=== PATIENT | female | born 1980 | race Caucasian/White ===

== ENCOUNTER → 2019-02-05 15:23 | Outpatient (CLI) | payer OTHER, SELFPAY | PROVIDERS: Family Provider Family Medicine; PCP Family Medicine; Visit Provider Nurse Practitioner | DX: N89.8 Other specified noninflammatory disorders of vagina (principal); N94.9 Unspecified condition associated with female genital organs and menstrual cycle | CPT/HCPCS: 87070; 87205 ==

== ENCOUNTER → 2019-05-16 10:47 | Outpatient (CLI) | payer OTHER, SELFPAY ==
[2019-05-16 11:31] LABS: Add Manual Diff / Slide Review NO; Basophils Absolute Auto 0 /uL (0-100); Basophils Percent Auto 0.8 % (0-2); Eosinophils Absolute Auto 200 /uL (0-450); Eosinophils Percent Auto 3.9 % (2-4); Hematocrit 40.4 % (36-46); Lymphocytes Absolute Auto 1700 /uL (1100-4500); Lymphocytes Percent Auto 36.2 % (25-40); Mean Corpuscular HGB Conc 34.7 % (30-36); Mean Corpuscular Hemoglobin 32.6 PG (26-34); Mean Corpuscular Volume 93.9 fL (80-100); Monocytes Absolute Auto 400 /uL (0-900); Monocytes Percent Auto 8.3 % (3-14); Neutrophils Absolute Auto 2400 /uL (1500-7000); Neutrophils Percent Auto 50.8 % (50-75); Platelet Count 248 X10^3/uL (150-400); Red Cell Distribution Width 13.3 % (11.6-14.8); White Blood Cell Count 4.6 X10^3/uL (4.5-11.0)
[2019-05-16 11:56] LABS: HEMOLYSIS < 15 (0-50); Potassium 4.1 mmol/L (3.4-5.1)
[2019-05-16 11:57] LABS: Alanine Aminotransferase 22 IU/L (9-52); Albumin 4.6 g/dL (3.5-5.0); Albumin Globulin Ratio 1.6 (1.0-2.8); Alkaline Phosphatase 45 U/L (38-126); Aspartate Aminotransferase 24 IU/L (14-36); BUN Creatinine Ratio 17.1 (6-22); Bilirubin Total 0.9 mg/dL (0.2-1.3); Blood Urea Nitrogen 12 mg/dL (7-17); Calcium 10.9 mg/dL (8.4-10.2); Carbon Dioxide 26 mmol/L (22-32); Chloride 102 mmol/L (98-107); Estimated Glomerular Filt Rate > 60.0 mL/min (>60); Globulin 2.8 g/dL (1.7-4.1); Glucose 106 mg/dL (70-100); Sodium 139 mmol/L (137-145); Total Protein 7.4 g/dL (6.3-8.2)
[2019-05-16 12:24] LABS: TSH w/ Reflex to FT4 2.33 uIU/mL (0.47-4.68)
== END ==
PROVIDERS: Family Provider Family Medicine; PCP Family Medicine; Visit Provider Nurse Practitioner
DX: Z00.00 Encounter for general adult medical examination without abnormal findings (principal)
CPT/HCPCS: 36415; 80053; 84443; 85025

== ENCOUNTER → 2019-05-30 09:27 | Outpatient (CLI) | payer OTHER, SELFPAY ==
[2019-05-30 11:07] LABS: Hemoglobin A1C% w Est Avg Glu 4.9 % (4.0-6.0)
[2019-05-30 11:54] LABS: Calcium 10.8 mg/dL (8.4-10.2); Glucose 79 mg/dL (70-100)
== END ==
PROVIDERS: PCP Family Medicine; Visit Provider Nurse Practitioner
DX: R73.9 Hyperglycemia, unspecified (principal); E83.52 Hypercalcemia
CPT/HCPCS: 36415; 82310; 82947; 83036

== ENCOUNTER → 2019-05-31 10:45 | Outpatient (CLI) | payer OTHER, SELFPAY ==
[2019-05-31 12:59] LABS: Phosphorous 2.9 mg/dL (2.5-4.5)
[2019-06-04 15:15] LABS: Calcium 8.4 mg/dL (8.6-10.2); Parathyroid Hormone, Intact 7 pg/mL (14-64)
[2019-06-04 15:26] LABS: Ionized Calcium 5.7 mg/dL (4.8-5.6)
== END ==
PROVIDERS: PCP Family Medicine; Visit Provider Nurse Practitioner
DX: E83.52 Hypercalcemia (principal); F32.9 Major depressive disorder, single episode, unspecified; L65.9 Nonscarring hair loss, unspecified; R53.83 Other fatigue
CPT/HCPCS: 36415; 82330; 83970; 84100

== ENCOUNTER → 2019-06-03 09:32 | Outpatient (CLI) | payer OTHER, SELFPAY ==
[2019-06-03 16:20] LABS: Calcium 24 Hour Urine 36 mg/day (100-300); Calcium Urine Random 1.5; Collection Time Urine 24 Hours; Total Volume Urine 2400 mL
== END ==
PROVIDERS: Family Provider Family Medicine; PCP Family Medicine; Visit Provider Nurse Practitioner
DX: E83.52 Hypercalcemia (principal); F32.9 Major depressive disorder, single episode, unspecified; L65.9 Nonscarring hair loss, unspecified; R53.83 Other fatigue
CPT/HCPCS: 82340

== ENCOUNTER → 2019-06-06 09:29 | Outpatient (CLI) | payer OTHER, SELFPAY ==
[2019-06-06 11:13] LABS: Prolactin 11.2 ng/mL (3.0-18.6)
[2019-06-06 11:18] LABS: Follicle Stimulating Hormone 6.12 mIU/mL
[2019-06-06 11:20] LABS: Free T3, Triiodothyronine Free 3.52 pg/mL (2.77-5.27); Free T4, Direct Thyroxine 0.86 ng/dL (0.78-2.19)
[2019-06-06 11:33] LABS: Thyroid Stimulating Hormone 3.21 uIU/mL (0.47-4.68)
[2019-06-08 13:47] LABS: Adrenocorticotropic Hormone 12 pg/mL (6-50)
== END ==
PROVIDERS: PCP Family Medicine; Visit Provider Nurse Practitioner
DX: E83.52 Hypercalcemia (principal); L65.9 Nonscarring hair loss, unspecified; R79.89 Other specified abnormal findings of blood chemistry
CPT/HCPCS: 36415; 82024; 83001; 84146; 84439; 84443; 84481

== ENCOUNTER → 2019-06-14 06:47 | Outpatient (CLI) | payer OTHER, SELFPAY ==
--- NOTE | 2019-06-14 06:50 | DI.MRI.S_ITS ---
PROCEDURE: MR BRAIN (PITUITARY) WWO CON INDICATIONS: elevated serum calcium/ low PTH, hair loss TECHNIQUE: Noncontrast sagittal and axial FLAIR, axial gradient echo, axial diffusion and ADC through the brain. Thin-slice sagittal and coronal T1 spin echo, coronal T2 fast spin echo through the pituitary. After the administration contrast, optional dynamic coronal T1 spin echo, thin-slice coronal and sagittal T1 spin echo images through the pituitary fossa; axial T1 spin echo with fat saturation through the brain. COMPARISON: None. FINDINGS: Image quality: Excellent. Pituitary Gland: Pituitary gland is normal size and contour. No sellar or suprasellar masses identified. 2 material and demonstrates normal, homogeneous postcontrast enhancement with no areas of relative delayed postcontrast enhancement. Pituitary infundibulum is slightly deviated to the right. Pituitary infundibulum has normal thickness and postcontrast enhancement. The optic chiasm is normal. Cavernous sinus which is normal postcontrast enhancement. CSF Spaces: Ventricles are normal in size and shape. Basal cisterns are patent. No extra-axial fluid collections. Brain: No intracranial bleeds or mass effects. No abnormal intracranial enhancement. Mcghee-white matter interface is intact. Diffusion weighted images demonstrate no acute ischemic insults. Brainstem is normal. Normal intravascular flow voids are present. Skull and face: Calvarial marrow is normal in signal. Orbits appear normal. Sinuses: Sinuses and mastoids are clear. IMPRESSION: 1. No intracranial disease process. 2. No MR evidence of pituitary microadenoma. Dictated by: Kassidy Mcknight MD, PhD on 06/14/2019 at 9:58 Approved by: Kassidy Mcknight MD, PhD on 06/14/2019 at 10:09
[2019-06-14 09:30] LABS: Magnesium 2.3 mg/dL (1.6-2.3)
[2019-06-14 10:44] LABS: Vitamin D 25 Hydroxy (D3) 34.2 ng/mL (30.0-100.0)
[2019-06-18 23:13] LABS: Vitamin A 59 mcg/dL (38-98)
[2019-06-19 06:39] LABS: 1 25 Dihydroxy Vitamin D 28 pg/mL (18-72)
== END ==
PROVIDERS: PCP Family Medicine; Visit Provider Nurse Practitioner
DX: E83.52 Hypercalcemia (principal); L65.9 Nonscarring hair loss, unspecified; R79.89 Other specified abnormal findings of blood chemistry
CPT/HCPCS: 36415; 70553; 82306; 82652; 83735; 84590; A9579

== ENCOUNTER → 2019-07-24 09:24 | Outpatient (CLI) | payer OTHER, SELFPAY ==
[2019-07-24 10:38] LABS: Lactate Dehydrogenase 362 U/L (313-618)
[2019-07-26 20:12] LABS: Albumin 4.5 g/dL (3.8-4.8); Alpha 1 Globulin 0.2 g/dL (0.2-0.3); Alpha 2 Globulin 0.6 g/dL (0.5-0.9); Beta 1 Globulin 0.5 g/dL (0.4-0.6); Protein, Total 7.1 g/dL (6.1-8.1)
[2019-07-27 13:36] LABS: Albumin 100 %; Total Urine Protein < 4 mg/dL (5-24); Urine Creatinine, Random 26 mg/dL (20-275)
== END ==
PROVIDERS: PCP Family Medicine; Visit Provider Family Medicine
DX: E83.52 Hypercalcemia (principal)
CPT/HCPCS: 36415; 83615; 84155; 84156; 84165; 84166

== ENCOUNTER → 2020-08-11 10:10 | Outpatient (CLI) | payer OTHER, SELFPAY ==
[2020-08-11 12:53] LABS: Add Manual Diff / Slide Review NO; Basophils Absolute Auto 0 /uL (0-100); Basophils Percent Auto 0.7 % (0-2); Eosinophils Absolute Auto 200 /uL (0-450); Eosinophils Percent Auto 2.7 % (2-4); Hematocrit 38.6 % (36-46); Hemoglobin 13.2 g/dL (12.0-16.0); Lymphocytes Absolute Auto 1900 /uL (1100-4500); Lymphocytes Percent Auto 31.9 % (25-40); Mean Corpuscular HGB Conc 34.3 % (30-36); Mean Corpuscular Hemoglobin 31.7 PG (26-34); Mean Corpuscular Volume 92.6 fL (80-100); Monocytes Absolute Auto 500 /uL (0-900); Monocytes Percent Auto 7.9 % (3-14); Neutrophils Absolute Auto 3400 /uL (1500-7000); Neutrophils Percent Auto 56.8 % (50-75); Platelet Count 269 X10^3/uL (150-400); Red Blood Cell Count 4.17 X10^6/uL (4.0-5.2); Red Cell Distribution Width 13.4 % (11.6-14.8)
[2020-08-11 13:10] LABS: Appearance Urine UA CLEAR; Bilirubin Urine UA NEGATIVE (NEGATIVE); Color Urine UA YELLOW; Glucose Urine UA NEGATIVE (Negative); Ketones Urine UA NEGATIVE (NEGATIVE); Leukocyte Esterase Urine UA 1+ (NEGATIVE); Nitrite Urine UA NEGATIVE (Negative); Occult Blood Urine UA NEGATIVE (Negative); Protein Urine UA NEGATIVE (Negative); Urobilinogen Urine UA 0.2 E.U./dL (0.2)
[2020-08-11 13:15] LABS: pH Urine UA 6.5 (4.5-8.0)
[2020-08-11 13:16] LABS: Bacteria Urine None Seen; RBC Urine None Seen (0-5/HPF)
[2020-08-11 13:27] LABS: Culture Indicated Urine Cult Not Indicated; Squamous Epithelial Cell Urine 5-10 /HPF (0-5/HPF); WBC Urine 1-5/HPF (0-5/HPF)
[2020-08-11 13:34] LABS: Alanine Aminotransferase 17 IU/L (<35); Albumin 4.3 g/dL (3.5-5.0); Albumin Globulin Ratio 1.6 (1.0-2.8); Alkaline Phosphatase 40 U/L (38-126); Aspartate Aminotransferase 27 IU/L (14-36); BUN Creatinine Ratio 21.2 (6-22); Bilirubin Total 0.4 mg/dL (0.2-1.3); Blood Urea Nitrogen 11 mg/dL (7-17); Calcium 10.7 mg/dL (8.4-10.2); Carbon Dioxide 26 mmol/L (22-32); Chloride 105 mmol/L (98-107); Estimated Glomerular Filt Rate > 60.0 mL/min (>60); Globulin 2.7 g/dL (1.7-4.1); Glucose 78 mg/dL (70-100); HEMOLYSIS < 15 (0-50); Potassium 4.1 mmol/L (3.4-5.1); Sodium 136 mmol/L (137-145)
[2020-08-12 10:03] LABS: RPR Screen Non Reactive (Non Reactive); Varicella IgG Antibody 1327 index (Immune >165)
[2020-08-13 16:40] LABS: Hepatitis B Surface Antigen NEGATIVE s/c (NEGATIVE); Rubella Antibody IgG 11.8 IU/mL (>15)
[2020-08-13 16:58] LABS: HIV 1 & 2 Ab/Ag 4th Gen Combo NEGATIVE (NEGATIVE); Hep C Virus Ab w/Reflex Quant NEGATIVE s/c (NEGATIVE)
== END ==
PROVIDERS: PCP Family Medicine; Referring Provider Obstetrics & Gynecology; Visit Provider Obstetrics & Gynecology
DX: Z34.81 Encounter for supervision of other normal pregnancy, first trimester (principal); E83.52 Hypercalcemia
CPT/HCPCS: 36415; 80053; 80055; 81003; 81015; 81420; 86787; 86803; 86850; 86900; 86901; 87389

== ENCOUNTER → 2020-08-25 18:46 | Outpatient (ROUT) | payer OTHER, SELFPAY ==
[2020-08-25 20:27] LABS: Urine N gonorrhoeae NOT DETECTED
[2020-08-25 20:37] LABS: Urine Chlamydia NOT DETECTED
== END ==
PROVIDERS: PCP Family Medicine; Visit Provider Obstetrics & Gynecology
DX: Z34.81 Encounter for supervision of other normal pregnancy, first trimester (principal); Z3A.12 12 weeks gestation of pregnancy
CPT/HCPCS: 87491; 87591

== ENCOUNTER → 2020-09-22 14:37 | Outpatient (CLI) | payer OTHER, SELFPAY ==
[2020-09-24 19:40] LABS: AFP Value 40.9 ng/mL (.); Gestational Age Ultrasound (.); Insulin Dep Diabetes No (.); OSBR Risk 1IN 6916 (.); Results Report (.); Test Results *Screen Negative* (.)
== END ==
PROVIDERS: PCP Family Medicine; Referring Provider Family Medicine; Visit Provider Obstetrics & Gynecology
DX: O09.522 Supervision of elderly multigravida, second trimester (principal)
CPT/HCPCS: 36415; 82105

== ENCOUNTER → 2020-10-20 12:45 | Outpatient (CLI) | payer OTHER, SELFPAY ==
--- NOTE | 2020-10-20 12:46 | DI.US.S_ITS ---
PROCEDURE: US OB >= 14 WEEKS FETUS INDICATIONS: ANATOMY OUTSIDE/PRIOR DATING DATA: Last menstrual period (LMP): 06/02/2020. LMP-based estimated date of delivery (DANIELITO): 03/09/2021 . First dating scan (date and location): 10/20/2020 . Estimated date of delivery (DANIELITO) from first dating scan: 03/11/2021 . TECHNIQUE: Real-time scanning was performed of the fetus, with image documentation and biometric measurements. Endovaginal scanning: No COMPARISON: [facility], , OB <= 14 WEEKS FETUS, 08/25/2020, 14:07. FINDINGS: General: A single living intrauterine gestation is present. Presentation: Vertex. Placenta: Placental position is posterior , and low-lying with the inferior margin of the placenta roughly 1.8 cm above the internal cervical os. Amniotic fluid index: 9.7 cm, normal range is 5-24 cm. heart rate: 128 beats per minute. Maternal cervical canal: 6.1 cm long. Normal lower limit is 2.5 cm. biometrics: Biparietal diameter: 19 weeks Head circumference: 19 weeks Abdominal circumference: 20 weeks 4 days Femur length: 19 weeks 6 days Estimated gestational age from initial scan: 19 weeks 5 days Composite gestational age from present scan: 19 weeks 4 days Estimated weight and percentile: 330 g; 66 percentile Measurement variability for biometric dating: +/- 7 days from 14 weeks to 15 weeks 6 days gestation, +/- 10 days from 16 weeks to 21 weeks 6 days gestation, +/- 2 weeks from 22 weeks to 27 weeks 6 days gestation, +/- 3 weeks for 28 weeks gestation or later. weight reference: 4500 g or EFW >90/95% is considered macrosomia or large for gestational age. EFW <10% is small for gestational age. EFW 5% or less is considered intra-uterine growth restriction. Anatomic survey: Neuro: Ventricles are non-dilated at less than 10 mm. Cisterna magna is normal at 3-11 mm. Cerebellum is normal in size and morphology. Nuchal skin fold: Normal at less than 6 mm between 14-21 weeks gestational age. Face: Nose and lips, facial profile are normal. Spine: No evidence for spina bifida. Heart: 4-chambered heart is present, with normal ventricular outflow tracts. Diaphragm: Diaphragm is intact. Stomach: Left-sided stomach is present. Kidneys: No hydronephrosis. Normal is less than 5 mm in 2nd trimester, less than 7 mm in 3rd trimester. Cord: 3-vessel cord has orthotopic insertion. Bladder: Normal in size. Extremities: All 4 extremities identified. IMPRESSION: 1. Single living IUP redemonstrated and interval growth is normal. 2. Normal anatomic survey. 3. Low-lying placenta. Follow-up recommended. Dictated by: Carlyle SEALS Interpreted: Polly Gallardo MD on 10/20/2020 at 16:44 Approved by: Polly Gallardo M.D. on 10/20/2020 at 17:06
== END ==
PROVIDERS: PCP Family Medicine; Referring Provider Obstetrics & Gynecology; Visit Provider Obstetrics & Gynecology
DX: Z34.82 Encounter for supervision of other normal pregnancy, second trimester (principal); Z3A.19 19 weeks gestation of pregnancy
CPT/HCPCS: 76811

== ENCOUNTER → 2020-12-04 12:24 | Outpatient (CLI) | payer OTHER, SELFPAY ==
[2020-12-04 13:50] LABS: Hemoglobin 10.7 g/dL (12.0-16.0)
[2020-12-04 13:59] LABS: GTT (PREG) 1 Hour PP 50gm Dose 173 mg/dL (76-139)
== END ==
PROVIDERS: PCP Family Medicine; Referring Provider Obstetrics & Gynecology; Visit Provider Obstetrics & Gynecology
DX: Z34.82 Encounter for supervision of other normal pregnancy, second trimester (principal); Z3A.26 26 weeks gestation of pregnancy
CPT/HCPCS: 36415; 82950; 85014; 85018

== ENCOUNTER → 2020-12-11 08:00 | Outpatient (CLI) | payer OTHER, SELFPAY ==
[2020-12-11 08:44] LABS: Glucose Fasting Gestational 88 mg/dL (76-95)
[2020-12-11 10:07] LABS: Glucose 1 Hour Gest 167 mg/dL (76-180)
[2020-12-11 11:17] LABS: Glucose 2 Hour Gest 113 mg/dL (76-155)
[2020-12-11 11:18] LABS: Glucose Tol Interp,Gestational INTERPRETATION
[2020-12-11 13:04] LABS: Glucose 3 Hour Gest 136 mg/dL (76-140)
== END ==
PROVIDERS: PCP Family Medicine; Referring Provider Obstetrics & Gynecology; Visit Provider Obstetrics & Gynecology
DX: O99.810 Abnormal glucose complicating pregnancy (principal)
CPT/HCPCS: 36415; 82951; 82952

== ENCOUNTER 2021-02-09 17:24 | Outpatient (CLI) | payer OTHER, SELFPAY | END 2021-02-09 18:00 | disposition home or self-care (01) | LOC: OB 02-10 08:42 | PROVIDERS: PCP Family Medicine; Referring Provider Obstetrics & Gynecology; Visit Provider Obstetrics & Gynecology | DX: O36.8330 Maternal care for abnormalities of the fetal heart rate or rhythm, third trimester, not applicable or unspecified (principal); O09.523 Supervision of elderly multigravida, third trimester; Z3A.36 36 weeks gestation of pregnancy | CPT/HCPCS: 59025; 87653; G0378; G0379 ==

== ENCOUNTER → 2021-02-09 17:37 | Outpatient (CLI) | payer SELFPAY ==
[2021-02-10 13:30] LABS: Strep Grp B PCR NEG for Grp B Strep
== END ==
PROVIDERS: PCP Family Medicine; Visit Provider Obstetrics & Gynecology
DX: Z34.83 Encounter for supervision of other normal pregnancy, third trimester (principal); Z3A.36 36 weeks gestation of pregnancy
CPT/HCPCS: 87653

== ENCOUNTER 2021-02-19 18:28 | Outpatient (CLI) | payer OTHER, SELFPAY ==
[2021-02-19 18:58] LABS: Add Manual Diff / Slide Review NO; Basophils Absolute Auto 0 /uL (0-100); Basophils Percent Auto 0.6 % (0-2); Eosinophils Absolute Auto 100 /uL (0-450); Eosinophils Percent Auto 2.1 % (2-4); Hematocrit 29.6 % (36-46); Hemoglobin 9.7 g/dL (12.0-16.0); Lymphocytes Absolute Auto 1900 /uL (1100-4500); Lymphocytes Percent Auto 28.1 % (25-40); Mean Corpuscular HGB Conc 32.7 % (30-36); Mean Corpuscular Hemoglobin 27.3 PG (26-34); Mean Corpuscular Volume 83.4 fL (80-100); Monocytes Absolute Auto 600 /uL (0-900); Monocytes Percent Auto 9.4 % (3-14); Neutrophils Absolute Auto 4100 /uL (1500-7000); Neutrophils Percent Auto 59.8 % (50-75); Platelet Count 243 X10^3/uL (150-400); Red Blood Cell Count 3.54 X10^6/uL (4.0-5.2); Red Cell Distribution Width 16.4 % (11.6-14.8); White Blood Cell Count 6.9 X10^3/uL (4.5-11.0)
[2021-02-19 19:11] LABS: Aspartate Aminotransferase 29 IU/L (14-36); BUN Creatinine Ratio 8.7 (6-22); Blood Urea Nitrogen 4 mg/dL (7-17); Estimated Glomerular Filt Rate > 60.0 mL/min (>60)
--- NOTE | 2021-02-19 20:20 | PM.OBTRLD ---
Visit Information Visit Information Date of evaluation: 02/21/21 Primary OB Provider: Miriam Rossi On-call OB Provider: Yessy Browning Reason for Evaluation: Yes other Comments/Additional reasons for admission: This patient is a 40-year-old para 3 at 37 weeks gestation presenting for evaluation for preeclampsia. Patient has had an uncomplicated except for advanced maternal age, has not been hypertensive, but reports that she was waiting in line at a local pharmacy with a blood pressure cuff and she took her blood pressure with a cuff and it was noted to be 146/90. Patient denies headaches, visual changes, right upper quadrant pain, chest pain. Good movement, no contractions, no loss of fluid, no vaginal bleeding. Vital Signs Vital Signs: 113-119/72-73, heart rate 70s PFSH Medical History Anxiety (~2018) Bursitis of hip, right Constipation Depression Diastasis of symphysis pubis during delivery (~2011) Hamstring strain Muscle strain of gluteal region Retained placenta with hemorrhage (~2007) Surgical History H/O bilateral inguinal hernia repair (~1985) [place] teeth extracted (~2000) Family History Mother Hypertension Cancer Father Myocardial infarction Medical non-compliance Grandmother Stroke Diabetes mellitus Grandfather Alcohol abuse Grandmother Medical history unknown Grandfather Medical history unknown Sister Rheumatoid arthritis Social History marital status: number of children: 3 household members: spouse and children (7 yr old, 12 yo, 14 yo.) lives independently: Yes caregiver/support person: No housing: house pets and animals: Yes (3 dogs - safe with babies.) education level: college (2 years. 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 ) eating out: rarely or never Type(s) of exercise: regular exercise (Cardio/weightlifting Body Pump class. Core class. ) and running (2-4 miles, 2-3 x a week. Non- she usually runs up to 5-8miles (20-25 miles a week).) frequency: 5-6 times per week Review of Systems Constitutional Constitutional: Reports system reviewed and no additional complaints, except as documented Cardiovascular Cardiovascular: Reports system reviewed and no additional complaints, except as documented Respiratory Respiratory: Reports system reviewed and no additional complaints, except as documented Neurologic Neurologic: Reports system reviewed and no additional complaints, except as documented Exam Narrative Exam Narrative: Patient well-appearing, no hands or feet swelling, resting in bed. Objective Labs Result Diagrams: 02/19/21 18:50 02/19/21 18:50 Labs: Laboratory Results - last 24 hr 02/19/21 02/19/21 18:50 18:50 WBC 6.9 RBC 3.54 L Hgb 9.7 L Hct 29.6 L MCV 83.4 MCH 27.3 MCHC 32.7 RDW 16.4 H Plt Count 243 Neut % (Auto) 59.8 Lymph % (Auto) 28.1 [place] % (Auto) 9.4 Eos % (Auto) 2.1 Baso % (Auto) 0.6 Neut # (Auto) 4100 Lymph # (Auto) 1900 [place] # (Auto) 600 Eos # (Auto) 100 Baso # (Auto) 0 BUN 4 L Creatinine 0.46 L Estimated GFR > 60.0 BUN/Creatinine Ratio 8.7 Uric Acid 5.0 AST 29 Evaluation Evaluation Baseline heart rate: 120 Variability: Moderate (11-25) monitor accelerations: Present Monitor Decelerations: Absent Contraction Frequency (minutes): 0 Category of Tracing: Reactive Status: Category l Laboratory results: Laboratory Tests 02/19/21 02/19/21 18:50 18:50 WBC 6.9 RBC 3.54 L Hgb 9.7 L Hct 29.6 L MCV 83.4 MCH 27.3 MCHC 32.7 RDW 16.4 H Plt Count 243 Neut % (Auto) 59.8 Lymph % (Auto) 28.1 [place] % (Auto) 9.4 Eos % (Auto) 2.1 Baso % (Auto) 0.6 Neut # (Auto) 4100 Lymph # (Auto) 1900 [place] # (Auto) 600 Eos # (Auto) 100 Baso # (Auto) 0 BUN 4 L Creatinine 0.46 L Estimated GFR > 60.0 BUN/Creatinine Ratio 8.7 Uric Acid 5.0 AST 29 Diagnosis, Plan/Disposition Plan/Disposition Plan: Home with labor and PIH precautions. OB Disposition: home
== END 2021-02-19 18:45 | disposition home or self-care (01) ==
LOC: OB 02-22 08:04
PROVIDERS: PCP Family Medicine; Referring Provider Obstetrics & Gynecology; Visit Provider Obstetrics & Gynecology
DX: O26.893 Other specified pregnancy related conditions, third trimester (principal); R03.0 Elevated blood-pressure reading, without diagnosis of hypertension; O09.523 Supervision of elderly multigravida, third trimester; Z3A.37 37 weeks gestation of pregnancy
CPT/HCPCS: 36415; 59025; 84450; 84550; 85025; G0378; G0379

== ENCOUNTER 2021-03-01 18:24 | Inpatient (IN) | payer OTHER, SELFPAY ==
[2021-03-01 19:26] VITALS: BP 119/69
[2021-03-01] MEDS: DINOPROSTONE VAG (CERVIDIL) 10 MG VAG (19:41)
[2021-03-01 20:02] LABS: Add Manual Diff / Slide Review NO; Basophils Absolute Auto 100 /uL (0-100); Basophils Percent Auto 0.8 % (0-2); Eosinophils Absolute Auto 200 /uL (0-450); Eosinophils Percent Auto 2.3 % (2-4); Hematocrit 28.5 % (36-46); Hemoglobin 9.2 g/dL (12.0-16.0); Lymphocytes Absolute Auto 2100 /uL (1100-4500); Lymphocytes Percent Auto 31.8 % (25-40); Mean Corpuscular HGB Conc 32.4 % (30-36); Mean Corpuscular Hemoglobin 26.8 PG (26-34); Mean Corpuscular Volume 82.7 fL (80-100); Monocytes Absolute Auto 600 /uL (0-900); Neutrophils Absolute Auto 3600 /uL (1500-7000); Neutrophils Percent Auto 55.1 % (50-75); Platelet Count 216 X10^3/uL (150-400); Red Blood Cell Count 3.45 X10^6/uL (4.0-5.2); Red Cell Distribution Width 17.3 % (11.6-14.8); White Blood Cell Count 6.5 X10^3/uL (4.5-11.0)
[2021-03-01 21:18] LABS: COVID19 - ADMIT (NP swab/PCR) Negative (Negative)
--- NOTE | 2021-03-02 | PATH_ITS ---
[facility] Accession Number: [id number] . 01 Material submitted: . fallopian tube - BILATERAL FALLOPIAN TUBES . 01 Clinical history: . INDUCTION . 02 Diagnosis: Bilateral Fallopian Tubes, Bilateral Salpingectomy: Complete cross-sections of fallopian tubes x2. Negative for atypia or malignancy. MRV 03/09/2021 0955 Local . 02 Electronically signed: . Santa Toney MD, Pathologist NPI- [id number] . 01 Gross description: . The specimen is received in formalin and labeled with bilateral fallopian tubes. It consists of two undesignated, fimbriated, continuous fallopian tubes. The first tube measures 9.1 cm in length x 0.7 cm in diameter. The first tube is covered in purple-machado to scott-machado, diffusely congested serosa. Sectioning the first tube reveals unremarkable white-machado mucosa, a pinpoint lumen, and alvarez that average 0.2 cm in thickness. . The second tube measures 7.8 cm in length x 0.6 cm in diameter and is covered with purple-machado to scott-machado, diffusely congested serosa. A 0.5 cm in diameter clear fluid filled cyst is present at the fimbriated end. Sectioning the second tube reveals unremarkable white-machado mucosa, a pinpoint lumen, and alvarez that average 0.2 cm in thickness. Skein Yarn Dyer Helper sections are submitted. . Summary of sections: A1 = First tube fimbria, bisected, two pieces A2 = First tube, product support sales representative, four pieces. A3 = Second tube, fimbria bisected, and cyst, three pieces. A4 = Second tube, product support sales representative, four pieces. ([id number]) /[facility] 03/04/2021 1836 Local . 02 Pathologist provided ICD-10: Z40.03 . 02 CPT . 707400 Performed at: 01 [facility] [address] [id number] [place] Rich Luong MD Phone: [phone] Performed at: 02 [facility] [address] [place], [place] [id number] MD Anju Stewart MD Phone: [phone]
--- NOTE | 2021-03-02 08:13 | PM.OBHP.1 ---
OB HPI Date/Time Date of admission: 03/01/21 Time Patient Seen: 08:14 History of Present Condition Chief complaint: Induction : 4 Para: 3 Estimated Date of Delivery: 03/09/21 Estimated Gestational Age (weeks): 39 Narrative: Lupe Sharif is a 40 year old female 4 para 3 at an estimated gestational age of 39 weeks gestation for induction of labor due to advanced maternal age. She received 1 dose of Cervidil overnight. Indications Indication for induction OB: other (Advanced maternal age) History of Present care: good care, initiated at week # (8), number of visits (12) and pounds weight gain (26) Dating criteria: LMP confirmed by 1st trimester US Ultrasounds: normal 1st trimester US and normal mid trimester US Obstetrical complications: none Medical complications: none Preadmission Labs Blood type: O (+) positive -: Antibody screen: negative, GBS status: negative, HBsAG: negative, HIV: negative and RPR/VDLR: negative -: Chlamydia screen: not detected and Gonorrhea screen: not detected -: Rubella: not immune and Varicella: immune HCT: 28.5 HCAB: negative Cell-free DNA: Normal female, normal AFP Urine: Negative 1 hr GTT: 173 3 hr GTT: 1 hr (167), 2 hr (113) and 3 hr (136) Fasting blood glucose: 88 Prior (ies) History: 3 Evaluation Evaluation Baseline heart rate: 115 Variability: Moderate (11-25) monitor accelerations: Present Monitor Decelerations: Absent Contraction Frequency (minutes): 7 Uterine Contraction Intensity: Mild Status: Category l Cervical dilation (cm): 1 Cervical effacement (%): 80 station: -1 Laboratory results: Laboratory Tests 03/01/21 03/01/21 03/01/21 19:55 19:55 20:00 WBC 6.5 RBC 3.45 L Hgb 9.2 L Hct 28.5 L MCV 82.7 MCH 26.8 MCHC 32.4 RDW 17.3 H Plt Count 216 Neut % (Auto) 55.1 Lymph % (Auto) 31.8 [place] % (Auto) 10.0 Eos % (Auto) 2.3 Baso % (Auto) 0.8 Neut # (Auto) 3600 Lymph # (Auto) 2100 [place] # (Auto) 600 Eos # (Auto) 200 Baso # (Auto) 100 SARS-CoV-2 (PCR) Negative Blood Type O Positive Antibody Screen Negative PFSH Medical History Anxiety (~2018) Bursitis of hip, right Constipation Depression Diastasis of symphysis pubis during delivery (~2011) Hamstring strain Muscle strain of gluteal region Retained placenta with hemorrhage (~2007) Surgical History H/O bilateral inguinal hernia repair (~1985) [place] teeth extracted (~2000) Family History Mother Hypertension Cancer Father Myocardial infarction Medical non-compliance Grandmother Stroke Diabetes mellitus Grandfather Alcohol abuse Grandmother Medical history unknown Grandfather Medical history unknown Sister Rheumatoid arthritis Social History marital status: number of children: 3 household members: spouse and children (7 yr old, 12 yo, 14 yo.) lives independently: Yes caregiver/support person: No housing: house pets and animals: Yes (3 dogs - safe with babies.) education level: college (2 years. 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 ) eating out: rarely or never Type(s) of exercise: regular exercise (Cardio/weightlifting Body Pump class. Core class. ) and running (2-4 miles, 2-3 x a week. Non- she usually runs up to 5-8miles (20-25 miles a week).) frequency: 5-6 times per week Meds Home Medications and Allergies Home Medications Medication Instructions Recorded Confirmed Type metoclopramide HCl 10 mg tablet 10 mg PO TID #90 tab 07/23/20 03/02/21 Rx (Reglan) prenat.vits,keri,ozz-wtbw-endvp 1 tab PO DAILY 07/23/20 03/02/21 History pantoprazole 40 mg tablet,delayed 40 mg PO DAILY #30 tab 10/20/20 03/02/21 Rx release (Protonix) Allergies Allergy/AdvReac Type Severity Reaction Status Date / Time latex Allergy Intermediate Throat Verified 02/23/21 13:58 swelling. zolpidem Allergy Mild HALLUCINATE Verified 02/23/21 13:58 Exam Vital Signs (past 8 hours): Generally: Patient sitting up in bed, no acute distress Lungs: Clear to auscultation bilaterally Cardiovascular: Regular rate and rhythm Fundal height: 39 cm Estimated weight: 7-1/2 lb Extremities: Trace edema, 1+ DTR Objective Labs Result Diagrams: 03/01/21 19:55 Labs: Laboratory Results - last 24 hr 03/01/21 03/01/21 03/01/21 19:55 19:55 20:00 WBC 6.5 RBC 3.45 L Hgb 9.2 L Hct 28.5 L MCV 82.7 MCH 26.8 MCHC 32.4 RDW 17.3 H Plt Count 216 Neut % (Auto) 55.1 Lymph % (Auto) 31.8 [place] % (Auto) 10.0 Eos % (Auto) 2.3 Baso % (Auto) 0.8 Neut # (Auto) 3600 Lymph # (Auto) 2100 [place] # (Auto) 600 Eos # (Auto) 200 Baso # (Auto) 100 SARS-CoV-2 (PCR) Negative Blood Type O Positive Antibody Screen Negative Assessment and Plan Assessment and Plan Assessment and Plan narrative: Assessment: 40-year-old 4 para 3 at estimated gestational age of 39 weeks gestation for induction of labor due to advanced maternal age Status post Cervidil overnight Favorable cervix Plan: Pitocin per protocol 2 Artificial rupture of membranes when able Expected management to spontaneous vaginal delivery Time Spent with Patient Total time spent with greater than 50% in coordination of care (as documented) at patient's floor/unit and/or counseling patient:: 15-24 minutes
[2021-03-02] MEDS: LACTATED RINGERS 1,000 ML 100 ML IV (08:52)
[2021-03-02] MEDS: OXYTOCIN PREMIX 30 UNIT/500 ML PLAST..BAG IV (08:53)
--- NOTE | 2021-03-02 12:52 | PM.OBPNLAB ---
Date/Time Date Patient Seen: 03/02/21 Time Patient Seen: 11:15 Pain Control Pain control: tolerating well Pelvic Exam Dilation (cm): 1 Effacement (%): 80 station: -1 Contractions Contractions on admission: none Monitor mode: External Pitocin rate (mU/min): 9 Contraction frequency (min): 4 Contraction duration (min): 1 Contraction pattern: Regular Contraction intensity: Moderate Status status: Category l Heart Rate Baseline: 110 Monitor Accelerations: Present Monitor Decelerations: Absent Monitor Variability: Moderate Assessment and Plan Assessment: induction ongoing Plan: continuous present management
--- NOTE | 2021-03-02 19:14 | PM.OBPNLAB ---
Date/Time Date Patient Seen: 03/02/21 Time Patient Seen: 19:14 Pain Control Pain control: epidural Pelvic Exam Dilation (cm): 4 Effacement (%): 80 station: -1 Amniotic membrane status: Ruptured Contractions Contractions on admission: regular Monitor mode: External Pitocin rate (mU/min): 18 Contraction frequency (min): 3 Contraction duration (min): 1 Contraction pattern: Regular Contraction intensity: Moderate Status status: Category l Heart Rate Baseline: 105 Monitor Accelerations: Present Monitor Decelerations: Absent Monitor Variability: Moderate Assessment and Plan Assessment: induction ongoing Comments: Intrauterine pressure catheter placed. Recheck cervix in 2 hours
[2021-03-02] MEDS: FENT 2MCG/ML BUPIV 0.125% EPI 200 MCG/100 ML PLAST..BAG 12 MCG EPIDURAL (19:58)
--- NOTE | 2021-03-02 22:03 | SUR.OPER ---
Supine on Padded OR bed, head on pillow, safety belt at thigh, arms secured on padded arm boards at <90 degrees abduction. Bump under right buttock. Legs uncrossed with pillow under knees, gel pad to heels, tape over blanket to lower legs.
--- NOTE | 2021-03-02 22:09 | SUR.OPER ---
viable female delivered at 21:56. Cord blood vials x2 and placenta sent with L&D RN.
[2021-03-02] MEDS: CEFAZOLIN 1 GM VIAL 2 GM IV (22:14)
--- NOTE | 2021-03-02 22:39 | PM.OBPNLAB ---
Date/Time Date Patient Seen: 03/02/21 Time Patient Seen: 21:00 Pain Control Pain control: epidural Pelvic Exam Dilation (cm): 4 Effacement (%): 80 station: -2 Amniotic membrane status: Ruptured Contractions Monitor mode: External Pitocin rate (mU/min): 18 Contraction frequency (min): 3 Contraction duration (min): 1 Contraction pattern: Regular Contraction intensity: Strong/Firm Intrauterine tone measurement: 200 Status status: Category ll Heart Rate Baseline: 105 Monitor Accelerations: Present Monitor Decelerations: Recurrent and Variable Monitor Variability: Moderate Assessment and Plan Assessment: other ( intolerance of labor, no descent of the head) Plan:
[2021-03-02 22:40] VITALS: BP 109/57; PULSE 70; RESP 14; TEMP 36.4; O2SAT 98
--- NOTE | 2021-03-02 22:41 | PM.PREOP ---
Pre-operative Note COVID-19 COVID-19 status: Negative Result date/Date tested (Pos, Neg/Pending): 03/01/21 Interval Note History & Physical reviewed/Exam performed by Physician: Yes Changes to H&P: No H&P completed within 30 days and has changed as indicated here:: 03/02/21
--- NOTE | 2021-03-02 22:41 | PM.OBCS.1 ---
Operative Date/Time/Diagnoses Date of procedure: 03/02/21 Time of procedure: 22:41 Pre-op diagnosis: 39 weeks gestation intolerance of labor No descent of the head Post-op diagnosis: same Procedure & Clinicians Procedure: Primary low-transverse section Bilateral salpingectomy Same procedure as scheduled: Yes Indications: Estimated gestational age of 39 weeks intolerance of labor Desires permanent sterilization Surgeon: Miriam Hussein Yes if Unassisted: No Superior Court Clerk: Christopher Centeno Reason for Superior Court Clerk: The certified anesthesiologist assistant retracted upon entering the abdomen. They provided fundal pressure for delivery of the baby. They provided retraction for closure of the uterus and all of the layers. Anesthesia Type: Epidural Operative Notes Findings: Live female infant in the L OT presentation Normal uterus, tubes, and ovaries Closure Type: primary Specimen(s): cord blood, placenta and tubes/segments of tubes Intraoperative meds administered: Duramorph, Ketorolac and Pitocin Applied: Catheter (To continuous drainage) Estimated Blood Loss (mL): 650 Blood products transfused: none Procedure in detail: The patient was taken to the operating room where she was placed in the dorsal supine position with a leftward tilt. She was prepped and draped in the usual sterile fashion. A timeout was performed. After epidural analgesia was found to be adequate, a Pfannenstiel skin incision was made 2 fingerbreadths above the pubic symphysis through the previous hernia incisions and carried through to the underlying layer fascia. The fascia was nicked in the midline, and the incision extended bilaterally with the Jerez scissors. The superior aspect of the fascial incision was grasped with a Aurora clamps, elevated, and the underlying rectus muscles dissected off sharply and bluntly. Attention was then turned to the inferior aspect of this incision which in a similar fashion was grasped with a Aurora clamps, elevated, and the underlying rectus muscles dissected off sharply and bluntly. The rectus muscles were in the midline. The peritoneum was identified, grasped between 2 hemostats, and entered sharply with the Metzenbaum scissors. This incision was extended superiorly and inferiorly with good visualization of the bladder. The bladder blade was inserted. The vesicouterine peritoneum was identified, grasped with the pickup, and entered sharply with the Metzenbaum scissors. This incision was extended bilaterally, and the bladder flap was created digitally. The bladder blade was reinserted. The lower uterine segment was incised in a transverse fashion with the scalpel. Upon entering the amniotic sac there was a small amount of clear amniotic fluid. The 's head was delivered without difficulty. The nose and mouth were suctioned with bulb suction. The remainder of the body delivered without difficulty. The cord was double clamped and cut after 1 minutes. The infant was handed off to waiting RN and RT. The placenta was delivered manually. The uterus was cleared of all clots and debris. The uterine incision was repaired with #1 chromic in a running interlocking fashion, and a second layer the same suture was used for an imbricating layer. Hemostasis was achieved. The tubes and ovaries were examined and were found to be normal. The gutters were cleared of all clots and debris. The tubes were grasped with Lena's and the mesosalpinx was cauterized and cut with the Thunderbeat. This continued all the way down to the cornua of the uterus and the tube was amputated at the cornua. Hemostasis was achieved. The bladder flap was reapproximated using 2-0 Vicryl in a running fashion. The parietal peritoneum was closed using 2-0 Vicryl in a running fashion. The fascia was reapproximated using 0 Vicryl in a running fashion. Subcutaneous layer was copiously irrigated with warm normal saline. 6 simple interrupted sutures of 3-0 Vicryl were placed to reapproximate the subcutaneous layer. The skin was closed with 4-0 Monocryl in a subcuticular fashion. Steri-Strips were placed. An Aquacel dressing was placed. The uterus was expressed of a small amount of old blood. Sponge, lap, and instrument counts were correct x-2. The patient tolerated the procedure well, and was taken to PACU in stable condition. Complications: none Baby 1: Gender: Female Presentation: vertex Position: Left Occiput Transverse Placental Delivery Description: Manual Removal and Normal Configuration Cord Vessel Description: 3 Vessels score (1 min): 9 score (5 min): 9 weight: 7 lb 3 oz Post-operative Condition: stable Disposition: PACU Aftercare: routine postop
[2021-03-02 22:45] VITALS: BP 110/63; PULSE 71; RESP 13; TEMP 36.3; O2SAT 99
[2021-03-02 22:51] VITALS: BP 112/62; PULSE 75; RESP 13; TEMP 36.3; O2SAT 98
[2021-03-02 22:55] VITALS: BP 112/62; PULSE 65; RESP 15; TEMP 36.3; O2SAT 98
[2021-03-02 23:06] VITALS: BP 114/56; PULSE 75; RESP 18; TEMP 36.2; O2SAT 98
[2021-03-02] MEDS: OXYCODONE IR 10 MG TABLET PO (23:53)
[2021-03-02] MEDS: ACETAMINOPHEN 325 MG TABLET 650 MG PO (23:53)
[2021-03-03] MEDS: OXYCODONE IR 10 MG TABLET PO ×5 (04:23→21:20)
[2021-03-03] MEDS: KETOROLAC 30 MG/ML VIAL IV ×3 (04:23→16:54)
[2021-03-03 06:51] LABS: Add Manual Diff / Slide Review NO; Basophils Absolute Auto 0 /uL (0-100); Basophils Percent Auto 0.3 % (0-2); Eosinophils Absolute Auto 100 /uL (0-450); Eosinophils Percent Auto 0.9 % (2-4); Hemoglobin 8.9 g/dL (12.0-16.0); Lymphocytes Absolute Auto 1300 /uL (1100-4500); Lymphocytes Percent Auto 16.2 % (25-40); Mean Corpuscular Hemoglobin 27.5 PG (26-34); Mean Corpuscular Volume 83.4 fL (80-100); Monocytes Absolute Auto 600 /uL (0-900); Monocytes Percent Auto 7.6 % (3-14); Neutrophils Absolute Auto 6100 /uL (1500-7000); Platelet Count 205 X10^3/uL (150-400); Red Blood Cell Count 3.24 X10^6/uL (4.0-5.2); Red Cell Distribution Width 17.3 % (11.6-14.8); White Blood Cell Count 8.1 X10^3/uL (4.5-11.0)
[2021-03-03] MEDS: ACETAMINOPHEN 325 MG TABLET 650 MG PO ×3 (07:40→19:04)
[2021-03-03] MEDS: LANOLIN OINT 7 GM 1 APPLIC TOP (08:48)
[2021-03-03] MEDS: DOCUSATE 250 MG CAPSULE PO (08:48)
[2021-03-03] MEDS: PRENATAL VIT,CALC/IRON/FOLIC 1 TABLET 1 TAB PO (08:48)
[2021-03-03] MEDS: IBUPROFEN 600 MG TABLET PO (19:03)
[2021-03-04] MEDS: IBUPROFEN 600 MG TABLET PO ×2 (02:53→09:21)
[2021-03-04] MEDS: ACETAMINOPHEN 325 MG TABLET 650 MG PO ×2 (02:54→09:21)
[2021-03-04] MEDS: OXYCODONE IR 10 MG TABLET PO ×2 (03:41→07:35)
[2021-03-04] MEDS: LANOLIN OINT 7 GM 1 APPLIC TOP (03:41)
[2021-03-04] MEDS: PRENATAL VIT,CALC/IRON/FOLIC 1 TABLET 1 TAB PO (07:35)
[2021-03-04] MEDS: DOCUSATE 250 MG CAPSULE PO (07:36)
[2021-03-04 08:22] VITALS: BP 106/61; PULSE 69; RESP 16; TEMP 37
[2021-03-04] MEDS: OXYCODONE IR 5 MG TABLET PO (12:19)
--- NOTE | 2021-03-05 06:34 | P.PNOB_ITS ---
Subjective - OB Subjective Patient comments: incisional pain and flatus present baby status: doing well and nursing well [place] feeding status: exclusively breast feeding Date Patient Seen: 03/03/21 Time Patient Seen: 18:45 Exam Vital Signs (past 8 hours): Oxygen Delivery Method Room Air Oxygen Flow Rate 0 Narrative Exam Narrative: Generally: Patient is sitting up in bed, holding infant, no acute distress Lungs: Clear to auscultation bilaterally Cardiovascular: Regular rate and rhythm Fundus: Firm at U -1 Incision: Clean dry and intact with Aquacel dressing Extremities: Negative Homans, no edema Objective Labs Result Diagrams: 03/03/21 06:37 Assessment & Plan Plan day: 1 plan OB: routine postop care Time Spent With Patient Time: Total time spent is greater than 50% in coordination of care (as documented) at patient's floor/unit and/or counseling patient: Time with patient: less than 15 minutes
--- NOTE | 2021-03-05 06:36 | PM.OBDS.1 ---
Discharge Providers Provider Date of admission: 03/01/21 18:24 Discharge Date: 03/04/21 Primary care physician: Dc Andrews MD Consults: 03/02/21 23:29 Consult to Front Desk Specialist Routine Comment: Discharge provider: Miriam Rossi MD Summary Hospital Course Date Patient Seen: 03/04/21 Time Patient Seen: 09:30 Diagnoses: 39 weeks gestation Cervidil cervical ripening Induction of labor with Pitocin intolerance of labor Primary low-transverse section Desires permanent sterilization Hospital Course: Patient is a 40-year-old 4 para 3 at 39 weeks gestation who presented on March 01, 2020 for Cervidil cervical ripening. On the morning of March 02, 2020 she was started on Pitocin. Artificial rupture membranes was performed. She received an epidural for pain management. She progressed to 4 cm dilated and then had intolerance of labor with deep variable decelerations. A primary low-transverse section was performed. Her postoperative course was unremarkable. On postop day # 2 she was discharged home Peripartum Data Infant Delivery Method: Section Laceration Description: None Episiotomy description: None Procedures: Cervidil cervical ripening Pitocin induction of labor Artificial rupture membranes Epidural analgesia Primary low-transverse section Bilateral salpingectomy complications: none 1: Gender: Female Disposition of : home Status at Discharge Cognitive/behavioral status at discharge: oriented Functional status at discharge: independent ambulation Overall status at discharge: patient is progressing back to baseline Time Spent with Patient Time attestation: Total time spent providing and/or coordinating discharge services: Time spent: Less than 30 minutes Objective Labs Result Diagrams: 03/03/21 06:37 Exam Vital Signs (past 8 hours): Oxygen Delivery Method Room Air Oxygen Flow Rate 0 Narrative Exam Narrative: Generally: Patient walking around in room, no acute distress Lungs: Clear to auscultation bilaterally Cardiovascular: Regular rate and rhythm Fundus: Firm at U -1 Incision: Clean dry and intact with Aquacel dressing Extremities: Negative Homans Discharge Plan Discharge Plan Patient Disposition: Home Provider Discharge Comment: Call with fever, chills, redness or drainage around the incision, or bleeding vaginally more than a pad in an hour Ibuprofen 600 mg every 6 hours Tylenol 650 mg every 6 hours Discharge orders & Medications Prescriptions: New oxycodone 5 mg tablet 5 mg PO Q4H PRN (Reason: pain) Qty: 20 RF: 0 Continued prenat.vits,keri,[id number] Tablet 1 tab PO DAILY RF: 0 Discontinued metoclopramide HCl [Reglan] 10 mg tablet 10 mg PO TID Qty: 90 RF: 2 pantoprazole [Protonix] 40 mg tablet,delayed release (DR/EC) 40 mg PO DAILY Qty: 30 RF: 3 Follow up/Referrals: Miriam Rossi MD [Physician] - (March 12, Monday, at 11:[address] Rossi for dressing removal Apr 20Monday, 3:30pm for 6 week post check with Dr Rossi) Diet/Activity/Treatments Diet: Regular Activity: No heavy lifting Nothing in the vagina for 6 weeks Skin/Wound/Dressing Care Report to your healthcare provider any signs of infection, such as:: chills, fever, increased pain, unusual drainage and unusual redness Dressing: Do not remove Visit Report/Discharge Packet Instructions: DI for , DI for Prescription Opioid Use Stand Alone Forms: Discharge: Care Discharge Data Primary Care Provider: Dc Andrews
== END 2021-03-04 12:45 | disposition home or self-care (01) | DRG 785 ==
PROVIDERS: Admitting Provider Obstetrics & Gynecology; PCP Family Medicine; Referring Provider Obstetrics & Gynecology; Visit Provider Obstetrics & Gynecology
PROC: 10D00Z1 Extraction of Products of Conception, Low, Open Approach (ICD-10-PCS; CPT 59514; principal; 2021-03-02 21:15)
DX: O32.4XX0 Maternal care for high head at term, not applicable or unspecified (principal); Z3A.39 39 weeks gestation of pregnancy; Z37.0 Single live birth; Z30.2 Encounter for sterilization; O77.9 Labor and delivery complicated by fetal stress, unspecified
CPT/HCPCS: 01967; 01968; 36415; 59050; 59200; 59510; 59514; 85025; 86850; 86900; 86901; 87635; C9803; G0379; J0690; J1885; J2274; J2405; J2590; J2765; J3010

== ENCOUNTER → 2021-03-10 11:15 | Outpatient (CLI) | payer OTHER, SELFPAY ==
--- NOTE | 2021-03-10 11:16 | DI.US.S_ITS ---
PROCEDURE: US PERIPH VENOUS LOW EXTREM LT INDICATIONS: LT LEG PAIN AND SWELLING TECHNIQUE: Real-time imaging, as well as color and pulse Doppler interrogation, were performed of the lower extremity deep veins from the inguinal ligament to the popliteal fossa. COMPARISON: None. FINDINGS: The common femoral, femoral and popliteal veins are normally compressible, and free of intraluminal thrombus. Color and pulse Doppler demonstrate normal phasic intraluminal flow. There is normal augmentation response to distal compression maneuver. IMPRESSION: No sonographic evidence of DVT. Dictated by: Dc Haney M.D. on 03/10/2021 at 12:22 Approved by: Dc Haney M.D. on 03/10/2021 at 12:22
== END ==
PROVIDERS: PCP Family Medicine; Referring Provider Family Medicine; Visit Provider Family Medicine
DX: O90.89 Other complications of the puerperium, not elsewhere classified (principal); M79.605 Pain in left leg; M79.89 Other specified soft tissue disorders
CPT/HCPCS: 93971

== ENCOUNTER → 2021-04-01 10:36 | Outpatient (CLI) | payer OTHER, SELFPAY ==
[2021-04-01 11:04] LABS: Appearance Urine UA CLEAR; Bilirubin Urine UA NEGATIVE (NEGATIVE); Color Urine UA YELLOW; Glucose Urine UA NEGATIVE (Negative); Ketones Urine UA NEGATIVE (NEGATIVE); Leukocyte Esterase Urine UA TRACE (NEGATIVE); Nitrite Urine UA NEGATIVE (Negative); Occult Blood Urine UA 2+ (Negative); Protein Urine UA NEGATIVE (Negative); Specific Gravity Urine UA 1.015 (1.000-1.035)
[2021-04-01 11:34] LABS: Bacteria Urine Few (2-10); Culture Indicated Urine Specimen Cultured; RBC Urine 1-5/HPF (0-5/HPF); Squamous Epithelial Cell Urine 0-1 /HPF (0-5/HPF); WBC Urine 1-5/HPF (0-5/HPF)
== END ==
PROVIDERS: PCP Family Medicine; Referring Provider Family Medicine; Visit Provider Family Medicine
DX: N39.0 Urinary tract infection, site not specified (principal)
CPT/HCPCS: 81001; 87086

== ENCOUNTER → 2021-04-13 15:57 | Outpatient (CLI) | payer OTHER, SELFPAY | PROVIDERS: PCP Family Medicine; Visit Provider Obstetrics & Gynecology | DX: R39.9 Unspecified symptoms and signs involving the genitourinary system (principal) | CPT/HCPCS: 87086 ==

== ENCOUNTER → 2025-01-02 16:37 | Outpatient (CLI) | payer SELFPAY ==
[2025-01-02 19:57] LABS: Influenza A - CEPHEID Flu A NEGATIVE (NEGATIVE); Influenza B - CEPHEID Flu B NEGATIVE (NEGATIVE); Respiratory Syncytial Virus Negative (Negative)
[2025-01-02 20:02] LABS: COVID-19 CEPHEID 4-PLEX PCR Negative (Negative)
== END ==
LOC: LAB 16:37
PROVIDERS: PCP Family Medicine; Visit Provider Family Medicine
DX: R50.9 Fever, unspecified (principal); R05.9 Cough, unspecified
CPT/HCPCS: 0241U